=== PATIENT | male | born 1955 | race African-American/Black ===

== ENCOUNTER 2017-10-13 14:11 | Emergency (ER) | payer OTHER ==
[2017-10-13] MEDS ORDERED: cloNIDine 0.1 MG TAB ONE (18:46)
--- NOTE | 2017-10-13 19:16 | ULT ---
ULTRASOUND WITH DOPPLER DUPLEX VENOUS LOWER EXTREMITY RIGHT CPT: 92789 ICD-10-PCS: B54D HISTORY: Pain. TECHNIQUE: Color flow Doppler, spectral waveform analysis of pulsed Doppler, and coto-scale imaging with wilmer kira and augmentation, were used to evaluate the right common femoral, femoral, popliteal, posterior tibial, and superficial femoral, veins; and the proximal portions of the profunda femoral and greater saphenous, veins. FINDINGS: Appropriate compressibility and flow within the imaged deep vein system of right lower extremity. IMPRESSION: No DVT. POS: NARESH
== END 2017-10-13 21:00 | disposition home or self-care (01) ==
LOC: ERS 14:11
DX: J06.9 Acute upper respiratory infection, unspecified (principal); M10.9 Gout, unspecified; Z86.73 Personal history of transient ischemic attack (TIA), and cerebral infarction without residual deficits; I13.2 Hypertensive heart and chronic kidney disease with heart failure and with stage 5 chronic kidney disease, or end stage renal disease; I50.9 Heart failure, unspecified; N18.6 End stage renal disease; E78.5 Hyperlipidemia, unspecified; F41.9 Anxiety disorder, unspecified; Z87.891 Personal history of nicotine dependence

== ENCOUNTER 2018-07-19 13:54 | Outpatient (CLI) | payer OTHER | END 2018-07-19 13:55 | disposition home or self-care (01) | LOC: CTENTCT 13:54 | PROVIDERS: ATTEND Otolaryngology Plastic Surgery within the Head & Neck | DX: J32.9 Chronic sinusitis, unspecified (principal) | CPT/HCPCS: 70486 ==

== ENCOUNTER 2018-07-27 08:24 | Day surgery (SDC) | payer OTHER ==
[2018-07-26 11:59] VITALS: BMI 37.0
[2018-07-27] MEDS ORDERED: Oxymetazoline HCl 0.05% ( 15 ML ) ONE ×2 (10:06→10:36)
[2018-07-27] MEDS ORDERED: Bacitracin Zinc Ointment 30 gm TUBE ONE (10:36)
[2018-07-27] MEDS ORDERED: Lidocaine 1% w/Epinephrine 1:100K 20 ML VIAL ONE ×2 (10:36→11:07)
[2018-07-27] MEDS ORDERED: Famotidine/PF 20 mg/2ml Vial ONE (10:44)
[2018-07-27] MEDS ORDERED: Fentanyl 100 MCG/2 ML VIAL ONE (10:44)
[2018-07-27] MEDS ORDERED: Dexamethasone 20 MG/5 ML VIAL ONE (13:23)
[2018-07-27] MEDS ORDERED: ePHEDrine/0.9% NaCl/PF SYRINGE 50 mg/10 ml ONE (13:23)
[2018-07-27] MEDS ORDERED: Lidocaine 1% PF 5 ML VIAL ONE (13:23)
[2018-07-27] MEDS ORDERED: Ondansetron PF 4 MG/2 ML Vial ONE (13:23)
[2018-07-27] MEDS ORDERED: Succinylcholine Chloride 20 MG/ML 10 ml SYRINGE FS ONE (13:23)
[2018-07-27] MEDS ORDERED: PROPOFOL 200 MG/20 ML VIAL ONE (13:23)
--- NOTE | 2018-07-28 12:14 | OP ---
DATE OF PROCEDURE: 07/27/2018 PREOPERATIVE DIAGNOSES: 1. Chronic rhinosinusitis. 2. Allergic fungal sinusitis. 3. Nasal polyposis. 4. Nasal septal deviation. 5. Bilateral inferior turbinate hypertrophy. 6. Nasal obstruction. POSTOPERATIVE DIAGNOSES: 1. Chronic rhinosinusitis. 2. Allergic fungal sinusitis. 3. Nasal polyposis. 4. Nasal septal deviation. 5. Bilateral inferior turbinate hypertrophy. 6. Nasal obstruction. PROCEDURES PERFORMED: 1. Bilateral endoscopic sinus surgery total ethmoidectomy with removal of tissue. 2. Bilateral endoscopic sinus surgery maxillary antrostomy with removal of tissue. 3. Bilateral endoscopic sinus surgery frontal sinusotomies with removal of tissue. 4. Bilateral endoscopic sinus surgery sphenoidotomies with removal of tissue. 5. Nasal septoplasty. 6. Bilateral inferior turbinate submucosal resection. ESTIMATED BLOOD LOSS: 50 mL. COMPLICATIONS: None. ANESTHESIA: GETA. DESCRIPTION OF PROCEDURE: Patient was taken to the operating room and placed supine on the table. General endotracheal anesthesia was obtained by the anesthesia staff. Tube was secured in the left lower lip. Patient was then placed in the beach chair position, and Afrin pledgets were placed in the nasal cavity. Injections of 1% lidocaine with 1:100,000 epinephrine were made into the nasal septum as well as the inferior turbinates. Patient was then prepped and draped in standard surgical fashion for nasal surgery. Following this, the Afrin pledgets were removed. A Wes incision was made on the left nasal septum. Submucoperichondrial dissection was performed. The deviated portions of the septum included portions of the cartilage and the bony septum. These isolated areas were removed using 3 cutting rongeurs. There was noted to be a large dorsal and caudal strut, left intact for support of the nose. The Mucoperichondrial flaps were then reapproximated using a 4-0 gut stitch. Any straight pieces of cartilage were crushed prior to this and placed between the mucoperichondrial flaps. Following this, the inferior turbinates were then punctured with a submucosal coblation wand, and submucosal coblations were performed of multiple areas of the inferior portion of the anterior inferior turbinate. Please note that submucosal microdebrider was used to submucosally resect the anterior and inferior portions of the inferior turbinates bilaterally. Following this, the inferior turbinates were then laterally outfractured. Following this, the 0-degree scope was advanced in the middle meatus. The middle turbinates were enlarged and bullous bilaterally. 1% lidocaine with 1:100,000 epinephrine was injected in the inferior turbinates, middle turbinates, and lateral nasal wall. Following this, the middle turbinates were medialized using a [place] elevator. Following this, the uncinate process was identified bilaterally and was anteriorly fractured using a ball-ended probe. The uncinate process was then removed using the straight microdebrider and upbiting Blakesley forceps. Following this, the natural maxillary sinus ostia was identified and was gently widened bilaterally using the curved microdebrider and straight Blakesley forceps. Following this, copious amounts of nasal polyps and allergic fungal debris were removed from the maxillary sinuses bilaterally. Following this, the ethmoidal bulla was identified and was punctured on its medial and inferior aspect. The ethmoidal bulla was then removed using the straight and curved microdebrider. Following this, the grand lamella was identified and was punctured into the posterior ethmoidal cells bilaterally. Working from posterior to anterior, the ethmoidal cells were opened and removed the nasal polyps and looking for fungal debris throughout the process. Following this, the sphenoid sinuses were approached through the previous ethmoidectomies and the superior turbinate where it attached to the posterior nasal wall was identified. Staying just medial and inferior to this area, a sphenoidotomy was created using the straight microdebrider. Following this, the sphenoidotomies were widened medially and inferiorly bilaterally. Polypoid tissue was removed from the sphenoid sinus ostia bilaterally. Following this, 45-degree scope and a 40-degree microdebrider blade were used to further open the frontal recess cells and frontal sinus ostia bilaterally. Following this, the nasal cavity was irrigated. Mirapex was placed. Baird splints were placed and secured. Job ID: [id number]
[2018-07-30 14:12] LABS: Fungus Stain Final report (.); Fungus Stain Result 1 Hyphae observed (.)
== END 2018-07-27 13:55 | disposition home or self-care (01) ==
LOC: SDC 08:24
PROVIDERS: ATTEND Otolaryngology Plastic Surgery within the Head & Neck
PROC: 09BU8ZZ Excision of Right Ethmoid Sinus, Via Natural or Artificial Opening Endoscopic (ICD-10-PCS; principal; 2018-07-27)
PROC: 09BT8ZZ Excision of Left Frontal Sinus, Via Natural or Artificial Opening Endoscopic (ICD-10-PCS; principal; 2018-07-27)
PROC: 099R8ZZ Drainage of Left Maxillary Sinus, Via Natural or Artificial Opening Endoscopic (ICD-10-PCS; principal; 2018-07-27)
PROC: 09BV8ZZ Excision of Left Ethmoid Sinus, Via Natural or Artificial Opening Endoscopic (ICD-10-PCS; principal; 2018-07-27)
PROC: 09BS8ZZ Excision of Right Frontal Sinus, Via Natural or Artificial Opening Endoscopic (ICD-10-PCS; principal; 2018-07-27)
PROC: 099Q8ZZ Drainage of Right Maxillary Sinus, Via Natural or Artificial Opening Endoscopic (ICD-10-PCS; principal; 2018-07-27)
PROC: 09CW8ZZ Extirpation of Matter from Right Sphenoid Sinus, Via Natural or Artificial Opening Endoscopic (ICD-10-PCS; principal; 2018-07-27)
PROC: 09CX8ZZ Extirpation of Matter from Left Sphenoid Sinus, Via Natural or Artificial Opening Endoscopic (ICD-10-PCS; principal; 2018-07-27)
PROC: 09SM0ZZ Reposition Nasal Septum, Open Approach (ICD-10-PCS; principal; 2018-07-27)
DX: J32.8 Other chronic sinusitis (principal); J34.2 Deviated nasal septum; J34.3 Hypertrophy of nasal turbinates; J33.8 Other polyp of sinus; J34.89 Other specified disorders of nose and nasal sinuses; J30.89 Other allergic rhinitis; Z87.891 Personal history of nicotine dependence; E78.5 Hyperlipidemia, unspecified; M19.90 Unspecified osteoarthritis, unspecified site; E11.9 Type 2 diabetes mellitus without complications; I11.0 Hypertensive heart disease with heart failure; I50.9 Heart failure, unspecified; Z79.82 Long term (current) use of aspirin; Z79.899 Other long term (current) drug therapy; Z88.0 Allergy status to penicillin; Z91.013 Allergy to seafood
CPT/HCPCS: 87070; 87076; 87102; 87205; 87206; 88304; 93005; 93010; J0131; J1100; J2001; J2405; J2704; J3010; S0028

== ENCOUNTER 2018-09-13 07:30 | Outpatient (CLI) | payer OTHER ==
--- NOTE | 2018-09-13 09:05 | ULT ---
ULTRASOUND RETROPERITONEUM COMPLETE: (RENAL) HISTORY: Chronic kidney disease in a 63-year-old male. FINDINGS: The right kidney measures 10 x 6.5 x 5 cm. The left kidney measures 10.5 x 4.5 x 5 cm. Both kidneys have normal cortical thickness and normal cortical echogenicity. There is no hydronephrosis. The u rinary bladder is almost empty and therefore cannot be evaluated. There is a 1 cm right renal upper pole cortical cyst. There is a 1.5 cm left renal lower pole cyst. IMPRESSION: 1. No hydronephrosis. 2. Small bilateral renal cysts, at least one on each side. 3. Otherwise negative. jn [] POS: BONNIE
== END 2018-09-13 07:31 | disposition home or self-care (01) ==
LOC: BICULT 07:30
PROVIDERS: ATTEND Internal Medicine Nephrology
DX: N18.3 Chronic kidney disease, stage 3 (moderate) (principal); E78.2 Mixed hyperlipidemia; E03.9 Hypothyroidism, unspecified; D47.3 Essential (hemorrhagic) thrombocythemia; I70.0 Atherosclerosis of aorta; F17.210 Nicotine dependence, cigarettes, uncomplicated; R94.5 Abnormal results of liver function studies; R74.8 Abnormal levels of other serum enzymes; N28.1 Cyst of kidney, acquired; Z85.038 Personal history of other malignant neoplasm of large intestine; Z79.899 Other long term (current) drug therapy
CPT/HCPCS: 76770

== ENCOUNTER 2018-11-18 09:59 | Emergency (ER) | payer OTHER | END 2018-11-18 12:20 | disposition home or self-care (01) | LOC: ERS 09:59 | DX: M54.9 Dorsalgia, unspecified (principal); M10.9 Gout, unspecified; Z86.73 Personal history of transient ischemic attack (TIA), and cerebral infarction without residual deficits; I13.2 Hypertensive heart and chronic kidney disease with heart failure and with stage 5 chronic kidney disease, or end stage renal disease; N18.6 End stage renal disease; I50.9 Heart failure, unspecified; E78.5 Hyperlipidemia, unspecified; Z79.899 Other long term (current) drug therapy; Z79.82 Long term (current) use of aspirin | CPT/HCPCS: 99281 ==

== ENCOUNTER 2019-08-10 07:21 | Observation (INO) | payer OTHER ==
[2019-08-09 09:24] VITALS: BMI 39.1
[2019-08-10 08:25] LABS: Hemoglobin 13.7 g/dL (14.0-18.0); Mean Corpuscular HGB CONC 31.5 g/dL (32.0-36.0); Mean Corpuscular Hemoglobin 29.5 pg (27.0-31.0); Mean Corpuscular Volume 93.8 fL (78.0-98.0); Mean Platelet Volume 8.3 fL (7.4-10.4); Platelet Count 224 thou/uL (130-400); RBC Distribution Width 12.9 % (11.5-14.5); Red Blood Cell (RBC) Count 4.64 mill/uL (4.70-6.10)
[2019-08-10] MEDS ORDERED: AFRIN NASAL MIST 15 ML BOT ONE ×2 (09:00→09:22)
[2019-08-10] MEDS ORDERED: EPINEPHrine 1 MG/ML AMP ONE (09:21)
[2019-08-10] MEDS ORDERED: Lidocaine 1% w/Epinephrine 1:100K 20 ML VIAL ONE (09:21)
[2019-08-10] MEDS ORDERED: Bacitracin Zinc Ointment 30 gm TUBE ONE (09:22)
[2019-08-10] MEDS ORDERED: Fentanyl 100 MCG/2 ML VIAL ONE (09:30)
[2019-08-10] MEDS ORDERED: Midazolam HCl 2 mg/2 ml Vial ONE (09:30)
[2019-08-10] MEDS ORDERED: Triamcinolone 40 MG/ML VIAL ONE (10:21)
[2019-08-10] MEDS ORDERED: Dexamethasone 20 MG/5 ML VIAL ONE (11:44)
[2019-08-10] MEDS ORDERED: Ondansetron PF 4 MG/2 ML Vial ONE (11:44)
[2019-08-10] MEDS ORDERED: Rocuronium Bromide 10 MG/ML (10ML VIAL) ONE (11:44)
[2019-08-10] MEDS ORDERED: Lidocaine 1% PF 5 ML VIAL ONE (11:44)
[2019-08-10] MEDS ORDERED: Glycopyrrolate 0.2 MG/ML 5 ML SYRINGE ONE (11:44)
[2019-08-10] MEDS ORDERED: PROPOFOL 200 MG/20 ML VIAL ONE (11:44)
--- NOTE | 2019-08-10 11:52 | OP ---
DATE OF PROCEDURE: 08/10/2019 PREOPERATIVE DIAGNOSES: 1. Chronic sinusitis. 2. Recurrent sinusitis. 3. Nasal polyposis. 4. Allergic fungal sinusitis. 5. Hypertrophic inferior turbinates. 6. Vannesa bullosa. POSTOPERATIVE DIAGNOSES: 1. Chronic sinusitis. 2. Recurrent sinusitis. 3. Nasal polyposis. 4. Allergic fungal sinusitis. 5. Hypertrophic inferior turbinates. 6. Vannesa bullosa. PROCEDURES PERFORMED: 1. Bilateral nasal endoscopy with nasal polypectomy. 2. Bilateral nasal endoscopy with total ethmoidectomy. 3. Bilateral nasal endoscopy with maxillary antrostomy with removal of tissue. 4. Bilateral nasal endoscopy with frontal sinusotomy. 5. Bilateral nasal endoscopy with sphenoidotomy. 6. Bilateral nasal endoscopy with resection of vannesa bullosa. 7. Septoplasty. 8. Bilateral nasal endoscopy with submucosal resection of inferior turbinates. DESCRIPTION OF PROCEDURE: BILATERAL NASAL ENDOSCOPY WITH NASAL POLYPECTOMY: Under endoscopic visualization, the nasal cavity was systematically examined and encountered large inflammatory polyps. These polyps were infiltrated 1% lidocaine with 1:100,000 epinephrine. The polyps were then addressed using the [employer] shaver. Then, the polyps were removed with care not to injure the surrounding normal mucosa. Samples of polyps were taken and sent for histologic evaluation. Bleeding was then controlled. BILATERAL NASAL ENDOSCOPY WITH TOTAL ETHMOIDECTOMY: The anterior face of the ethmoid bulla was entered and with the micro-debrider, dissection continued posteriorly to the ground lamella. The limits of dissection included the insertion of the middle turbinate, medial orbital wall, and base of skull. We similarly identified the frontal recess and removed shrouds of bone and debris in that region to obtain patency into the agger nasi region and frontal recess. We then entered the ground lamella and its anteroinferior aspect and proceeded posteriorly, opening the posterior ethmoid air-cell system. Again, the limits of dissection included the base of skull and medial orbital wall. BILATERAL NASAL ENDOSCOPY WITH MAXILLARY ANTROSTOMY WITH REMOVAL OF TISSUE: The uncinate was then identified and the extent of the uncinate was appreciated by out-fracturing the uncinate with the ball-tip probe. We then used the sickle blade to disarticulate the uncinate from the lateral nasal wall. This was then removed with straight biting and upbiting punches with the remaining shrouds of mucosa and bony septum removed with the micro-debrider. The natural os of the maxillary sinus was then identified and enlarged with the maxillary punches and back biting forceps. BILATERAL NASAL ENDOSCOPY WITH FRONTAL SINUSOTOMY: Following the ethmoidectomy, we then turned our attention to the frontal nasal recess. The agger nasi cells were addressed and the frontal recess was exposed. The natural opening to the frontal sinus was identified. At this point, any obstructing shrouds of mucosa and bony fragments were removed with a curved microdebrider. The wound was then examined and found to be free of any obstructing debris. We then turned our attention to the contralateral side and performed a similar procedure again under endoscopic visualization using a 45-degree scope. We were able to visualize the frontal recess. Obstructing shrouds of mucosa and bone were removed with a microdebrider. The natural os of frontal sinus was identified and enlarged and irrigated. At this point, the frontal sinusotomy was completed and we turned to the next area of concern. BILATERAL NASAL ENDOSCOPY WITH SPHENOIDOTOMY: The anterior face of the sphenoid was identified and entered in its extreme anteroinferior aspect. A sphenoid punch was then used to enlarge the sphenoidotomy and no injury to the optic nerve or internal carotid artery occurred. BILATERAL NASAL ENDOSCOPY WITH RESECTION OF VANNESA BULLOSA: The vannesa bullosa was identified and entered with a sickle blade. The lateral aspect of the vannesa bullosa was meticulously resected while leaving the medial most aspect to form the new middle turbinate. Attention was made not to violate the mucosa. The straight biting punches and micro-debrider were used to remove shrouds of mucosa and bony debris. SEPTOPLASTY: After local anesthesia was infiltrated into the submucoperichondrial plane, a standard Wes incision was made with a #15 blade down to the level of the septal cartilage. The caudal elevator was used to elevate the mucoperichondrium from the underlying cartilage. We then proceeded beyond the bony cartilaginous junction and elevated the bony periosteum as well. Great attention was paid to the spur to prevent rent formation in the septal flap. A transcartilaginous incision was then made, while preserving an adequate dorsal and caudal cartilaginous strut for tip support. The deformed cartilage was removed and disarticulated from the bony cartilaginous junction and maxillary crest. This was placed in saline and would later be crushed and returned to the mucoperichondrial envelope. We then elevated the contralateral periosteum from the bony cartilaginous region and removed the deformed portions of the bone and bony spurs. The cartilage was then crushed and placed back into the mucoperichondrial envelope and the mucosa was re-approximated with a quilting stitch composed of rapidly absorbent gut suture. The [place] incision was also closed with interrupted gut suture. At the completion of the case, Baird splints were placed and suture secured to the caudal septum. BILATERAL NASAL ENDOSCOPY WITH SUBMUCOSAL RESECTION OF INFERIOR TURBINATES: After consent was obtained, the patient was identified, brought to the operating room, and placed on the operating room table in the supine position. Consent was obtained, notifying the patient of the possibility of additional infections, bleeding, brain injury, and eye/orbital injury. The patient was placed on the operating room table, and general endotracheal anesthesia and intravenous access was obtained. The patient was then positioned, prepped and draped for endoscopic sinus surgery. Nasal preparation included trimming nasal vestibular hairs and spraying in topical Afrin. We then placed Afrin topical solution on nasal pledgets and strategically located them intranasally. The perinasal mucosa was injected with 1% lidocaine with 1:100,000 epinephrine in the submucoperichondrial plane of the septum, lateral nasal wall, and anterior to the uncinate. The patient was then prepped and draped in a sterile fashion and positioned for endoscopic sinus surgery. With the 0-degree endoscope, the patient underwent systematic nasal endoscopy. There were no suspicious internasal masses or lesions identified. We then focused our attention to the osteomeatal complex region under the middle turbinate. The inferior turbinates were visualized with a 0 degree endoscope and outfractured with a Ney elevator. The inferior medial aspect was cauterized with the electrocautery. Hemostasis was obtained . After adequate airway was established, we turned our attention to the contralateral side and used a similar procedure. Again, a Ney elevator was used to outfracture inferior turbinates under endoscopic visualization. With a suction cautery, the free inferior medial aspect was cauterized under direct visualization along the length of the inferior turbinate. At this point, we then turned our attention to the contralateral side and proceeded with endoscopic sinus surgery. At the completion of the case, Rice keel splints were placed in the ethmoid cavities after the ethmoidectomy. There were no complications. The patient tolerated the procedure well and was discharged to the recovery room in stable condition prior to return to the preoperative day stay with ultimate discharge home. Prescriptions for pain medication and antibiotics were provided. The patient received intramuscular Depo-Medrol during the case. FINDINGS: The patient had diffuse polyps and allergic fungal mucin throughout. There is hyperostotic bone and right septal spur touching the inferior turbinates. Job ID: [id number]
[2019-08-10] MEDS ORDERED: hydrALAZINE 20 MG/ML VIAL ONE ×2 (12:37→12:59)
[2019-08-10] MEDS ORDERED: Labetalol HCl 100 MG/20 ML VIAL ONE (13:56)
[2019-08-10] MEDS ORDERED: hydrALAZINE 25 MG TAB PO SCH ×2 (15:15→21:00)
[2019-08-10] MEDS ORDERED: cloNIDine 0.1 MG TAB PO SCH ×2 (15:15→21:00)
[2019-08-10] MEDS ORDERED: ALPRAZolam 0.5 MG TAB PO SCH (19:15)
[2019-08-10] MEDS ORDERED: Loperamide HCl 2 MG CAP PO PRN (19:16)
[2019-08-10] MEDS ORDERED: Senokot S 8.6-50 MG TAB PO PRN (19:16)
[2019-08-10] MEDS ORDERED: Bisacodyl 5 MG TAB PO PRN (19:16)
[2019-08-10] MEDS ORDERED: HYDROcodone/Acetaminophen 5/325 mg Tablet PO PRN (19:16)
[2019-08-10] MEDS ORDERED: Ondansetron ODT 4 MG TAB PO PRN (19:16)
[2019-08-10] MEDS ORDERED: cloNIDine 0.2 MG TAB PO SCH (20:45)
--- NOTE | 2019-08-10 20:54 | CON ---
DATE OF CONSULTATION: 08/10/2019 REASON FOR CONSULTATION: Hypertension. HISTORY OF PRESENT ILLNESS: Mr. Napier is a very pleasant 64-year-old gentleman, very well known to myself, who comes to the hospital for a planned rhinoplasty. He had his procedure earlier this afternoon and postoperatively he did well. No chest pain, tightness, or pressure. No evidence of ischemia or heart attack. However, he did have elevated blood pressures in the 190s over 110s that was not controlled with p.r.n. medications. Secondary to this, Cardiology was consulted for help with this. On my evaluation, Mr. Napier had minimal response to clonidine and hydralazine, so recommendation was to admit the patient for observation, try to restart him on all his medications and try to do p.r.n.'s to lower his blood pressure and hopefully discharge tomorrow. Mr. Napier currently denies any chest pain, tightness, pressure. No shortness of breath. EKG shows no ischemic changes. PAST MEDICAL HISTORY: 1. Hypertension. 2. Hypertensive cardiomyopathy. 3. Sleep apnea. 4. Hyperlipidemia. 5. Hypertension. 6. Renal insufficiency. 7. Stroke in the past. 8. Prostate cancer. PAST SURGICAL HISTORY: Coronary angiogram in 2013 showed normal coronaries. FAMILY HISTORY: Mother with coronary artery disease. Father from malignancy. Grandfather with coronary artery disease. SOCIAL HISTORY: Former smoker. No tobacco or drugs. ALLERGIES: SHELLFISH AND PENICILLIN. OUTPATIENT MEDICATIONS: Include; 1. Cyclobenzaprine. 2. Carvedilol 25 mg twice a day. 3. Atorvastatin 40 mg daily. 4. CoQ10. 5. Symbicort. 6. Vitamin D3. 7. Aspirin 81 a day. 8. Furosemide 40 mg a day. 9. Clonidine 0.3 mg daily. 10. Isosorbide mononitrate 60 mg daily. 11. Hydralazine 100 mg 3 times a day. REVIEW OF SYSTEMS: A 12-point review of systems was done and was all negative unless stated in the history of present illness. PHYSICAL EXAMINATION: VITAL SIGNS: Temperature 98.6, pulse 85, respiratory rate 18, saturating 95% on room air, blood pressure 198/100. GENERAL: Awake, alert, oriented x3. No distress. HEENT: Normocephalic, atraumatic. NECK: Supple. LUNGS: Clear. CARDIOVASCULAR: S1 and S2. No S3 or S4. No murmurs. ABDOMEN: Soft. Positive bowel sounds. EXTREMITIES: No edema. SKIN: Warm and dry. LABORATORY DATA: Laboratory work was reviewed. White count of 8, hemoglobin 13, hematocrit 43, and platelet count of 224. ASSESSMENT: 1. Hypertension, difficult to control. 2. History of hypertensive cardiomyopathy, normalized ejection fraction on most recent evaluation. 3. Coronary artery disease, has a 60% lesion on the left anterior descending with normal FFR a few years back. Currently asymptomatic. No evidence of acute coronary syndrome. 4. Status post sinuplasty. PLAN: 1. We will restart his home medications. He is actually on 0.3 of clonidine t.i.d. and he is on 60 mg of isosorbide mononitrate and 100 mg t.i.d. of hydralazine. These medications will be updated and we will plan on trying to do p.r.n.'s to try to lower his blood pressure a little bit more. 2. A.m. labs. Thank you for letting us to participate in the care of your patient. We will follow. Job ID: [id number]
[2019-08-10] MEDS ORDERED: Ubidecarenone 50 MG CAP PO SCH (21:00)
[2019-08-10] MEDS ORDERED: Ascorbic Acid 500 mg Chewable Tablet PO SCH (21:00)
[2019-08-10] MEDS: hydrALAZINE 25 MG TAB PO SCH (21:01)
[2019-08-10] MEDS: hydrALAZINE 20 MG/ML VIAL SLOW IVP PRN (22:40)
[2019-08-11] MEDS: cloNIDine 0.3 MG TAB PO SCH ×2 (00:34→07:51)
[2019-08-11 05:11] LABS: #Lymphocytes 1.5 thou/uL (1.20-3.40); #Monocytes 0.8 thou/uL (0.11-0.59); %Basophils 0.1 % (0.0-1.0); %Lymphocytes 8.9 % (21.0-51.0); %Monocytes 4.3 % (0.0-10.0); %Neutrophils 86.7 % (42.0-75.0); Hemoglobin 14.6 g/dL (14.0-18.0); Mean Corpuscular HGB CONC 31.5 g/dL (32.0-36.0); Mean Corpuscular Hemoglobin 29.1 pg (27.0-31.0); Mean Corpuscular Volume 92.3 fL (78.0-98.0); Mean Platelet Volume 8.4 fL (7.4-10.4); Platelet Count 235 thou/uL (130-400); RBC Distribution Width 12.9 % (11.5-14.5); White Blood Cell (WBC) Count 17.4 thou/uL (4.8-10.8)
[2019-08-11 05:32] LABS: Anion Gap 15 mmol/L (10-20); BUN (Urea Nitrogen) 23 mg/dL (8.4-25.7); Calc. Creatinine Clearance 52 mL/min (70-130); Calcium 8.5 mg/dL (7.8-10.44); Carbon Dioxide 24 mmol/L (23-31); Chloride 101 mmol/L (98-107); Estimated GFR-MDRD 34; Glucose 110 mg/dL (80-115); Potassium 4.2 mmol/L (3.5-5.1); Sodium 136 mmol/L (136-145)
[2019-08-11] MEDS: hydrALAZINE 20 MG/ML VIAL SLOW IVP PRN (05:38)
[2019-08-11] MEDS ORDERED: Furosemide 40 MG TAB PO SCH (07:30)
[2019-08-11] MEDS: hydrALAZINE 25 MG TAB PO SCH (07:52)
[2019-08-11] MEDS ORDERED: Carvedilol 25 MG TAB PO SCH (08:00)
[2019-08-11] MEDS ORDERED: Aspirin 81 mg Enteric Coated Tablet PO SCH (09:00)
[2019-08-11] MEDS ORDERED: Isosorbide Mononitrate (ER) 30 MG TAB PO SCH ×2 (09:00)
[2019-08-11 11:21] VITALS: BP 130/68; TEMP 98.3
--- NOTE | 2019-08-14 07:21 | DIS ---
DATE OF ADMISSION: 08/10/2019 DATE OF DISCHARGE: 08/11/2019 DISCHARGING PHYSICIAN: Srikanth Brantley MD. PRIMARY DIAGNOSES: 1. Hypertension. 2. Status post bilateral nasal endoscopy with nasal polypectomy. SUMMARY: Mr. Napier is a pleasant 64-year-old gentleman, very well known to myself, who came to the hospital for a planned nasal endoscopy. He had this performed yesterday by Dr. Ambrose. Everything went well. He had bilateral nasal endoscopy with polypectomies. Postoperatively, he was doing fine. He felt well. Denied any angina. No shortness of breath. However, his blood pressure was in the 200s/100s, and we could not get it down. This was most likely related to him skipping some of his daily medications due to being n.p.o. for the procedure. He was admitted for this and was restarted on all his home medications and his blood pressure got down to the 130s/80s and is feeling much better. He has been walking around without any issues, feeling well. No leg swelling whatsoever. No leg pains. Nothing to suggest DVT of any kind. DISPOSITION: The patient will be discharged home in a stable condition. DISCHARGE MEDICATIONS: Resume home medications. FOLLOWUP: Per Dr. Ambrose and with myself in 4 weeks. TIME SPENT: 30 minutes at bedside, counseling for discharge. Job ID: [id number]
== END 2019-08-11 13:50 | disposition home or self-care (01) ==
LOC: SDC 07:21 → SURG B 18:57
PROVIDERS: ADMIT Specialist; ATTEND Specialist
PROC: 099R8ZZ Drainage of Left Maxillary Sinus, Via Natural or Artificial Opening Endoscopic (ICD-10-PCS; principal; 2019-08-11)
PROC: 099Q8ZZ Drainage of Right Maxillary Sinus, Via Natural or Artificial Opening Endoscopic (ICD-10-PCS; 2019-08-11)
PROC: 09BT8ZZ Excision of Left Frontal Sinus, Via Natural or Artificial Opening Endoscopic (ICD-10-PCS; 2019-08-11)
PROC: 09BS8ZZ Excision of Right Frontal Sinus, Via Natural or Artificial Opening Endoscopic (ICD-10-PCS; 2019-08-11)
PROC: 09BL8ZZ Excision of Nasal Turbinate, Via Natural or Artificial Opening Endoscopic (ICD-10-PCS; 2019-08-11)
PROC: 09BL8ZZ Excision of Nasal Turbinate, Via Natural or Artificial Opening Endoscopic (ICD-10-PCS; 2019-08-11)
PROC: 09JY8ZZ Inspection of Sinus, Via Natural or Artificial Opening Endoscopic (ICD-10-PCS; 2019-08-11)
PROC: 09BV8ZZ Excision of Left Ethmoid Sinus, Via Natural or Artificial Opening Endoscopic (ICD-10-PCS; 2019-08-11)
PROC: 09BU8ZZ Excision of Right Ethmoid Sinus, Via Natural or Artificial Opening Endoscopic (ICD-10-PCS; 2019-08-11)
PROC: 09BM8ZZ Excision of Nasal Septum, Via Natural or Artificial Opening Endoscopic (ICD-10-PCS; 2019-08-11)
DX: J32.9 Chronic sinusitis, unspecified (principal); J34.3 Hypertrophy of nasal turbinates; J33.9 Nasal polyp, unspecified; J30.89 Other allergic rhinitis; I25.10 Atherosclerotic heart disease of native coronary artery without angina pectoris; I11.9 Hypertensive heart disease without heart failure; I43 Cardiomyopathy in diseases classified elsewhere; E78.5 Hyperlipidemia, unspecified; G47.30 Sleep apnea, unspecified; Z86.73 Personal history of transient ischemic attack (TIA), and cerebral infarction without residual deficits; Z79.82 Long term (current) use of aspirin; Z79.899 Other long term (current) drug therapy; Z87.891 Personal history of nicotine dependence; Z88.0 Allergy status to penicillin; Z91.013 Allergy to seafood
CPT/HCPCS: 36415; 80048; 85025; 85027; 93005; 93010; 96374; 96376; G0378; J0171; J0360; J1100; J2001; J2250; J2405; J2704; J3010; J3301

== ENCOUNTER 2022-10-01 05:47 | Day surgery (SDC) | payer OTHER, MEDICAID ==
[2022-09-29 13:40] VITALS: BMI 34.4
[2022-10-01] MEDS ORDERED: Midazolam HCl 2 mg/2 ml Vial ONE (06:24)
[2022-10-01] MEDS ORDERED: FENTANYL 50 MCG/ML 1 ML VIAL ONE (06:24)
[2022-10-01] MEDS ORDERED: Lidocaine 1% (PF) 30 ML VIAL ONE (06:25)
[2022-10-01] MEDS ORDERED: Heparin 10,000 UNITS/ 10 ML VIAL ONE (06:25)
[2022-10-01 07:12] LABS: Cardiac Risk 5.4 (Less than 4.5)
[2022-10-01] MEDS ORDERED: hydrALAZINE 20 MG/ML VIAL ONE ×3 (08:10→09:37)
[2022-10-01] MEDS ORDERED: cloNIDine 0.1 MG TAB ONE (08:32)
== END 2022-10-01 13:15 | disposition home or self-care (01) ==
LOC: CCL 05:47
PROVIDERS: ATTEND Internal Medicine Cardiovascular Disease
PROC: 4A023N7 Measurement of Cardiac Sampling and Pressure, Left Heart, Percutaneous Approach (ICD-10-PCS; principal; 2022-10-01)
PROC: B2111ZZ Fluoroscopy of Multiple Coronary Arteries using Low Osmolar Contrast (ICD-10-PCS; 2022-10-01)
DX: I25.10 Atherosclerotic heart disease of native coronary artery without angina pectoris (principal); I25.41 Coronary artery aneurysm; I35.1 Nonrheumatic aortic (valve) insufficiency; I13.11 Hypertensive heart and chronic kidney disease without heart failure, with stage 5 chronic kidney disease, or end stage renal disease; I43 Cardiomyopathy in diseases classified elsewhere; N18.6 End stage renal disease; E78.5 Hyperlipidemia, unspecified; G47.30 Sleep apnea, unspecified; Z85.46 Personal history of malignant neoplasm of prostate; Z86.73 Personal history of transient ischemic attack (TIA), and cerebral infarction without residual deficits; Z87.891 Personal history of nicotine dependence; Z79.82 Long term (current) use of aspirin; Z79.899 Other long term (current) drug therapy; Z88.0 Allergy status to penicillin; Z91.013 Allergy to seafood
CPT/HCPCS: 80061; J0360; J3010; 93458; 99152; 99153; C1769; J1644; J2001; J2250

== ENCOUNTER 2022-10-20 06:51 | Inpatient (IN) | payer OTHER, MEDICAID ==
[2022-10-20] MEDS ORDERED: hydrALAZINE 20 MG/ML VIAL ONE (07:22)
[2022-10-20] MEDS ORDERED: Nitroglycerin 2% Ointment 1 INCH/1 GM Packet ONE (07:22)
[2022-10-20 07:28] LABS: #Eosinphils 0.4 thou/uL (0.0-0.7); #Lymphocytes 1.9 thou/uL (1.20-3.40); #Monocytes 0.8 thou/uL (0.11-0.59); #Neutrophils 6.7 thou/uL (1.40-6.50); %Basophils 0.1 % (0.0-1.0); %Eosinophils 3.7 % (0.0-10.0); %Lymphocytes 19.5 % (21.0-51.0); %Neutrophils 68.7 % (42.0-75.0); Hemoglobin 13.1 g/dL (14.0-18.0); Mean Corpuscular HGB CONC 33.2 g/dL (32.0-36.0); Mean Corpuscular Volume 93.6 fl (78.0-98.0); Mean Platelet Volume 8.8 fL (7.4-10.4); Platelet Count 212 10x3/uL (130-400); RBC Distribution Width 13.3 % (11.5-14.5); Red Blood Cell (RBC) Count 4.22 mill/uL (4.70-6.10); White Blood Cell (WBC) Count 9.7 10x3/uL (4.8-10.8)
[2022-10-20 07:56] LABS: ALT (SGPT) 9 U/L (8-55); Albumin 3.9 g/dL (3.4-4.8); Alkaline Phosphatase 67 U/L (40-110); BUN (Urea Nitrogen) 52 mg/dL (8.4-25.7); Bilirubin, Total 0.3 mg/dL (0.2-1.2); CK (CPK) 326 U/L (30-200); Calc. Creatinine Clearance 0 mL/min (70-130); Calcium 9.3 mg/dL (7.8-10.44); Carbon Dioxide 16 mmol/L (23-31); Chloride 108 mmol/L (98-107); Estimated GFR 10; Glucose 91 mg/dL (80-115); Lipase 63 U/L (8-78); Sodium 138 mmol/L (136-145)
[2022-10-20 07:57] LABS: Anion Gap 19 mmol/L (10-20); Globulin 3.8 g/dL (2.4-3.5); Potassium 4.5 mmol/L (3.5-5.1); Protein, Total 7.7 g/dL (5.8-8.1)
[2022-10-20 08:01] LABS: AST (SGOT) 16 U/L (5-34)
[2022-10-20 08:13] LABS: CKMB 3.9 ng/mL (0-6.6)
[2022-10-20] MEDS ORDERED: Aspirin 81 mg Enteric Coated Tablet ONE (08:52)
[2022-10-20] MEDS ORDERED: Ondansetron PF 4 MG/2 ML Vial IVP PRN (09:25)
[2022-10-20] MEDS ORDERED: Ondansetron ODT 4 MG TAB PO PRN (09:25)
[2022-10-20] MEDS ORDERED: Calcium Carbonate 500 MG ChewTAB PO PRN (09:25)
[2022-10-20] MEDS ORDERED: Tuberculin PPD 0.1 ML VIAL I-DERMAL SCH (09:30)
[2022-10-20 10:27] LABS: Hep B Surf Ag Non-Reactive S/CO (NonReactive); Hep C IgG Ab Non-Reactive (NonReactive)
[2022-10-20 13:04] LABS: HBSAg Index 0.27 S/CO (0-0.99)
[2022-10-20 13:20] LABS: Hep B Core Total Ab Reactive (NonReactive)
[2022-10-20 13:26] LABS: Hep B Core Total Index 2.34 S/CO (0-0.79); Hep B Surf AB Indeterminate (NonReactive)
[2022-10-20 15:19] VITALS: BMI 35.4
[2022-10-20] MEDS: hydrALAZINE 25 MG TAB PO SCH ×2 (15:46→22:06)
[2022-10-20] MEDS: cloNIDine 0.3 MG TAB PO SCH (15:46)
[2022-10-20] MEDS: Heparin 5,000 UNITS/ML VIAL SC SCH ×2 (15:47→21:11)
[2022-10-20] MEDS: Carvedilol 25 MG TAB PO SCH (17:58)
[2022-10-20] MEDS: Cholecalciferol (Vitamin D3) 400 UNITS TAB PO SCH (21:11)
[2022-10-21] MEDS: cloNIDine 0.3 MG TAB PO SCH ×4 (00:08→21:10)
[2022-10-21 05:12] LABS: #Eosinphils 0.4 thou/uL (0.0-0.7); #Lymphocytes 1.9 thou/uL (1.20-3.40); #Monocytes 0.9 thou/uL (0.11-0.59); %Basophils 0.4 % (0.0-1.0); %Eosinophils 4.3 % (0.0-10.0); %Lymphocytes 23.1 % (21.0-51.0); %Monocytes 10.9 % (0.0-10.0); %Neutrophils 61.4 % (42.0-75.0); Hemoglobin 11.7 g/dL (14.0-18.0); Mean Corpuscular HGB CONC 32.4 g/dL (32.0-36.0); Mean Corpuscular Hemoglobin 30.3 pg (27.0-31.0); Mean Corpuscular Volume 93.4 fl (78.0-98.0); Platelet Count 185 10x3/uL (130-400); RBC Distribution Width 13.5 % (11.5-14.5); Red Blood Cell (RBC) Count 3.86 mill/uL (4.70-6.10); White Blood Cell (WBC) Count 8.1 10x3/uL (4.8-10.8)
[2022-10-21 05:22] LABS: Phosphorus 4.4 mg/dL (2.3-4.7)
[2022-10-21 05:25] LABS: Anion Gap 14 mmol/L (10-20); BUN (Urea Nitrogen) 55 mg/dL (8.4-25.7); Calc. Creatinine Clearance 18 mL/min (70-130); Calcium 8.6 mg/dL (7.8-10.44); Carbon Dioxide 22 mmol/L (23-31); Chloride 105 mmol/L (98-107); Estimated GFR 10; Glucose 96 mg/dL (80-115); Potassium 4.3 mmol/L (3.5-5.1); Sodium 137 mmol/L (136-145)
[2022-10-21] MEDS: Heparin 5,000 UNITS/ML VIAL SC SCH ×3 (09:16→21:11)
[2022-10-21] MEDS: Calcitriol 0.25 MCG CAP PO SCH (09:16)
[2022-10-21] MEDS: Fluticasone Propionate Nasal Spray 16 gm Bottle NASAL SCH (09:16)
[2022-10-21] MEDS: hydrALAZINE 25 MG TAB PO SCH ×3 (09:16→21:10)
[2022-10-21] MEDS: Aspirin 81 mg Enteric Coated Tablet PO SCH (09:16)
[2022-10-21] MEDS: Carvedilol 25 MG TAB PO SCH ×2 (09:16→17:00)
[2022-10-21] MEDS: CO Q-10 CAPSULE 100 MG PO SCH (09:17)
[2022-10-21] MEDS ORDERED: Lidocaine 2% PF 5 ML VIAL ONE (16:05)
[2022-10-21] MEDS ORDERED: Bupivacaine HCl 0.5%/Epinephrine 1:200,000/PF 30 ml Vial ONE (16:05)
[2022-10-21] MEDS ORDERED: Heparin 10,000 UNITS/ 10 ML VIAL ONE (16:08)
[2022-10-21] MEDS ORDERED: KETAMINE 100 MG/ML (5ML VIAL) ONE (16:30)
[2022-10-21] MEDS ORDERED: fentaNYL 50 mcg/mL 1 mL Vial ONE (16:30)
[2022-10-21] MEDS ORDERED: Midazolam HCl 2 mg/2 ml Vial ONE (16:30)
[2022-10-21] MEDS ORDERED: ePHEDrine Sulfate 50 MG/10 ML VIAL ONE (16:53)
[2022-10-21] MEDS ORDERED: Ondansetron PF 4 MG/2 ML Vial ONE (16:53)
[2022-10-21] MEDS ORDERED: Lidocaine 1% PF 5 ML VIAL ONE (16:53)
[2022-10-21] MEDS ORDERED: PROPOFOL 200 MG/20 ML VIAL ONE (16:53)
[2022-10-21] MEDS ORDERED: Ondansetron HCl/PF 4 MG/2 ML Vial IVP PRN (18:20)
[2022-10-21] MEDS ORDERED: Morphine Sulfate 2 MG/ML SYRINGE SLOW IVP PRN (18:20)
[2022-10-21] MEDS: Cholecalciferol (Vitamin D3) 400 UNITS TAB PO SCH (21:08)
[2022-10-21] MEDS: Acetaminophen 325 MG TAB PO PRN (21:14)
[2022-10-22 04:53] LABS: Anion Gap 13 mmol/L (10-20); BUN (Urea Nitrogen) 44 mg/dL (8.4-25.7); Calc. Creatinine Clearance 20 mL/min (70-130); Calcium 8.6 mg/dL (7.8-10.44); Carbon Dioxide 23 mmol/L (23-31); Chloride 104 mmol/L (98-107); Estimated GFR 11; Glucose 93 mg/dL (80-115); Magnesium 1.8 mg/dL (1.6-2.6); Sodium 136 mmol/L (136-145)
[2022-10-22 04:54] LABS: Phosphorus 4.4 mg/dL (2.3-4.7)
[2022-10-22] MEDS: Acetaminophen 325 MG TAB PO PRN (04:59)
[2022-10-22] MEDS: Heparin 5,000 UNITS/ML VIAL SC SCH ×3 (08:43→20:42)
[2022-10-22] MEDS: hydrALAZINE 25 MG TAB PO SCH ×4 (08:43→20:42)
[2022-10-22] MEDS: cloNIDine 0.3 MG TAB PO SCH ×3 (08:43→20:42)
[2022-10-22] MEDS: Carvedilol 25 MG TAB PO SCH ×2 (08:44→18:10)
[2022-10-22] MEDS ORDERED: READ PPD TEST SITE TD SCH (09:30)
[2022-10-22] MEDS: CO Q-10 CAPSULE 100 MG PO SCH (11:20)
[2022-10-22] MEDS: Aspirin 81 mg Enteric Coated Tablet PO SCH (11:21)
[2022-10-22] MEDS: Calcitriol 0.25 MCG CAP PO SCH (11:21)
[2022-10-22] MEDS: Fluticasone Propionate Nasal Spray 16 gm Bottle NASAL SCH (11:22)
[2022-10-22] MEDS ORDERED: Heparin 10,000 UNITS/ 10 ML VIAL ONE (11:22)
[2022-10-22] MEDS: Cholecalciferol (Vitamin D3) 400 UNITS TAB PO SCH (20:42)
[2022-10-23 05:07] LABS: #Eosinphils 0.5 thou/uL (0.0-0.7); #Lymphocytes 1.9 thou/uL (1.20-3.40); #Monocytes 1.1 thou/uL (0.11-0.59); #Neutrophils 5.1 thou/uL (1.40-6.50); %Basophils 0.3 % (0.0-1.0); %Eosinophils 5.3 % (0.0-10.0); %Lymphocytes 22.1 % (21.0-51.0); %Neutrophils 59.4 % (42.0-75.0); Hemoglobin 11.6 g/dL (14.0-18.0); Mean Corpuscular Hemoglobin 30.8 pg (27.0-31.0); Mean Corpuscular Volume 93.3 fl (78.0-98.0); Mean Platelet Volume 8.9 fL (7.4-10.4); Platelet Count 165 10x3/uL (130-400); RBC Distribution Width 13.1 % (11.5-14.5); Red Blood Cell (RBC) Count 3.75 mill/uL (4.70-6.10); White Blood Cell (WBC) Count 8.6 10x3/uL (4.8-10.8)
[2022-10-23 05:26] LABS: Phosphorus 4.1 mg/dL (2.3-4.7)
[2022-10-23 05:31] LABS: Anion Gap 14 mmol/L (10-20); BUN (Urea Nitrogen) 42 mg/dL (8.4-25.7); Calc. Creatinine Clearance 17 mL/min (70-130); Calcium 8.5 mg/dL (7.8-10.44); Carbon Dioxide 25 mmol/L (23-31); Chloride 102 mmol/L (98-107); Estimated GFR 9; Glucose 99 mg/dL (80-115); Magnesium 1.9 mg/dL (1.6-2.6); Potassium 4.2 mmol/L (3.5-5.1); Sodium 137 mmol/L (136-145)
[2022-10-23] MEDS ORDERED: Heparin 10,000 UNITS/ 10 ML VIAL ONE (08:33)
[2022-10-23 08:56] VITALS: TEMP 98.2
[2022-10-23] MEDS ORDERED: Polyethylene Glycol 3350 17 GM Packet PO SCH (09:00)
[2022-10-23] MEDS: hydrALAZINE 25 MG TAB PO SCH ×2 (09:59→16:20)
[2022-10-23] MEDS: cloNIDine 0.3 MG TAB PO SCH ×2 (10:00→16:21)
[2022-10-23] MEDS: CO Q-10 CAPSULE 100 MG PO SCH (10:00)
[2022-10-23] MEDS: Carvedilol 25 MG TAB PO SCH ×2 (10:00→16:23)
[2022-10-23] MEDS: Calcitriol 0.25 MCG CAP PO SCH (10:01)
[2022-10-23] MEDS: Heparin 5,000 UNITS/ML VIAL SC SCH ×2 (10:01→15:25)
[2022-10-23] MEDS: Aspirin 81 mg Enteric Coated Tablet PO SCH (10:01)
[2022-10-23 16:51] VITALS: BP 128/58
[2022-10-23] MEDS ORDERED: Rosuvastatin 10 MG TAB PO SCH (21:00)
== END 2022-10-23 18:28 | disposition home or self-care (01) | DRG 673 ==
LOC: ERS 06:51 → ERHOLD 08:54 → 2SW 14:28
PROVIDERS: ADMIT Family Medicine; ATTEND Family Medicine
PROC: 0JH63XZ Insertion of Tunneled Vascular Access Device into Chest Subcutaneous Tissue and Fascia, Percutaneous Approach (ICD-10-PCS; principal; 2022-10-21)
PROC: 02HV33Z Insertion of Infusion Device into Superior Vena Cava, Percutaneous Approach (ICD-10-PCS; 2022-10-21)
PROC: B518ZZA Fluoroscopy of Superior Vena Cava, Guidance (ICD-10-PCS; 2022-10-21)
PROC: 5A1D70Z Performance of Urinary Filtration, Intermittent, Less than 6 Hours Per Day (ICD-10-PCS; 2022-10-21)
DX: I12.0 Hypertensive chronic kidney disease with stage 5 chronic kidney disease or end stage renal disease (principal); N18.6 End stage renal disease; N17.9 Acute kidney failure, unspecified; I47.20 Ventricular tachycardia, unspecified; N25.81 Secondary hyperparathyroidism of renal origin; E87.70 Fluid overload, unspecified; E78.5 Hyperlipidemia, unspecified; I25.10 Atherosclerotic heart disease of native coronary artery without angina pectoris; K21.9 Gastro-esophageal reflux disease without esophagitis; G47.33 Obstructive sleep apnea (adult) (pediatric); I16.0 Hypertensive urgency; Z88.0 Allergy status to penicillin; Z91.013 Allergy to seafood; Z79.82 Long term (current) use of aspirin; Z79.899 Other long term (current) drug therapy; Z87.891 Personal history of nicotine dependence; Z85.46 Personal history of malignant neoplasm of prostate; I69.334 Monoplegia of upper limb following cerebral infarction affecting left non-dominant side
CPT/HCPCS: 36415; 71045; 80048; 80053; 82550; 82553; 83690; 83735; 83880; 84100; 84484; 85025; 86580; 86704; 90935; 93005; 96374; C1752; G0257; J0360; J1644; J2001; J2250; J2405; J2704; J3010